=== PATIENT | male | born 1940 ===

== ENCOUNTER → 2019-01-30 | Outpatient (CLI) | payer OTHER | END | disposition home or self-care (01) | LOC: LAB 18:59 → LAB SHORT 18:59 | DX: Z48.817 Encounter for surgical aftercare following surgery on the skin and subcutaneous tissue (principal); C44.41 Basal cell carcinoma of skin of scalp and neck; D04.39 Carcinoma in situ of skin of other parts of face | CPT/HCPCS: 87070; 87077; 87186; 87205 ==